=== PATIENT | female | born 1990 | race Caucasian/White ===

== ENCOUNTER 2017-05-02 19:22 | Observation (INO) | payer BC ==
[2017-05-02] MEDS ORDERED: ZYRTEC10 M7 (20:00)
[2017-05-02] MEDS ORDERED: PRENA1 CHEW TA1.4 M1 (20:00)
[2017-05-02] MEDS ORDERED: ZOFRAN4 M2 (20:01)
[2017-05-02 21:12] LABS: URINE BILIRUBIN MODERATE (NEG); URINE BLOOD NEGATIVE (NEG); URINE GLUCOSE (UA) NEGATIVE (NEG); URINE KETONE LARGE (NEG); URINE LEUKOCYTE ESTERASE POSITIVE (NEG); URINE NITRITE NEGATIVE (NEG); URINE PROTEIN MODERATE (NEG); URINE SPECIFIC GRAVITY 1.025 (1.003-1.030)
[2017-05-02 21:14] LABS: URINE APPEARANCE CLOUDY; URINE COLOR DARK YELLOW
[2017-05-02 21:18] LABS: URINE BACTERIA 2+; URINE MUCUS 2+
[2017-05-02 21:19] LABS: URINE RBC 0 /[HPF] (0-5)
[2017-07-03] MEDS ORDERED: TYLENOL EXTRA500 M1 PO (22:25)
[2017-07-03] MEDS ORDERED: ALLEGRA ALLERG180 M1 (22:26)
[2017-07-08] MEDS ORDERED: PERCOCET 5-3251 EACH PO (11:10)
[2017-07-08] MEDS ORDERED: COLACE100 M1 PO (11:11)
[2017-07-08] MEDS ORDERED: IBUPROFEN800 M1 PO (11:11)
== END 2017-05-02 22:57 ==
LOC: LDR 19:22
PROVIDERS: Obstetrics & Gynecology; ADMIT Obstetrics & Gynecology
DX: O99.89 Other specified diseases and conditions complicating pregnancy, childbirth and the puerperium (principal); R19.7 Diarrhea, unspecified; R50.9 Fever, unspecified; O21.2 Late vomiting of pregnancy; Z3A.29 29 weeks gestation of pregnancy
CPT/HCPCS: J2405